=== PATIENT | female | born 1995 | race Hispanic/Latino ===

== ENCOUNTER 2022-02-21 14:50 | Emergency (ER) | payer SELFPAY ==
[2022-02-21] MEDS ORDERED: Lidocaine 1% (PF) 30 ML VIAL ONE (16:02)
[2022-02-21] MEDS ORDERED: Lidocaine/Transparent Dressing 1 EACH KIT ONE (16:02)
[2022-02-21] MEDS ORDERED: Bacitracin 1 PK ONE (19:14)
== END 2022-02-21 19:37 | disposition home or self-care (01) ==
LOC: CSHERS 14:50
DX: L02.01 Cutaneous abscess of face (principal); L03.211 Cellulitis of face; L72.3 Sebaceous cyst
CPT/HCPCS: 10060; J2001